=== PATIENT | female | born 1975 | race Caucasian/White ===

== ENCOUNTER 2017-03-18 16:48 | Emergency (ER) | payer SELFPAY ==
[~2017-03-18] VITALS: Ht 160 cm; Wt 49.4 kg
--- NOTE | 2017-03-18 16:48 | NUR ---
C/O HEAD LAC AND L HIP PAIN S/P SLIPPED AND FELL -KO
[2017-03-18] MEDS ORDERED: KETOROLAC TROMETHAMINE INJ 30 MG/ML VIAL ONE (17:56)
[2017-03-18] MEDS ORDERED: TDAP [DIPH/PERTUSSIS/TET] 0.5 ML VIAL IM ONE ×2 (17:56→18:00)
[2017-03-18] MEDS ORDERED: LIDOCAINE HCL/MPF 1% 30 ML VIAL IJ ONE (17:56)
[2017-03-18] MEDS ORDERED: LIDOCAINE HCL/PF 1% 30 ML VIAL TP ONE (18:00)
[2017-03-18] MEDS ORDERED: KETOROLAC TROMETHAMINE INJ 60 MG/2 ML VIAL IM ONE (18:00)
[2017-03-18] MEDS ORDERED: LORAZEPAM 1 MG TABLET ONE (18:30)
[2017-03-18] MEDS ORDERED: LORAZEPAM 1 MG TABLET PO ONE (18:30)
[2017-03-18 19:11] VITALS: BP 103/62
== END 2017-03-18 19:13 | disposition home or self-care (01) ==
LOC: ER 16:49
DX: S01.01XA Laceration without foreign body of scalp, initial encounter (principal); S70.02XA Contusion of left hip, initial encounter; S50.01XA Contusion of right elbow, initial encounter; F41.9 Anxiety disorder, unspecified; W01.0XXA Fall on same level from slipping, tripping and stumbling without subsequent striking against object, initial encounter; Y93.89 Activity, other specified; Y92.89 Other specified places as the place of occurrence of the external cause; Y99.9 Unspecified external cause status
CPT/HCPCS: 12001; 90471; 90715; 96372; 99284; A4606; J1885; J3490 ×2; Z7610